=== PATIENT | female | born 1975 | race Caucasian/White ===

== ENCOUNTER 2023-08-17 07:47 | Outpatient (CLI) | payer OTHER ==
[2023-08-17 12:16] LABS: BASOPHILS % (AUTO) 0.8 %; EOSINOPHILS # (AUTO) 0.1 10^3/uL (0.0-0.7); EOSINOPHILS % (AUTO) 1.6 %; HCT - HEMATOCRIT 44.9 % (37.0-47.0); HGB - HEMOGLOBIN 14.2 g/dL (12.0-16.0); LYMPHOCYTES # (AUTO) 2.2 10^3/uL (1.5-3.5); LYMPHOCYTES % (AUTO) 42.7 %; MEAN CORPUSCULAR HGB CONC 31.6 g/dL (32.0-36.0); MEAN PLATELET VOLUME 9.6 fL (7.9-10.8); MONOCYTES # (AUTO) 0.5 10^3/uL (0.0-1.0); MONOCYTES % (AUTO) 9.7 %; NEUTROPHILS # (AUTO) 2.3 10^3/uL (1.5-6.6); PLT - PLATELET COUNT 405 10^3/uL (130-450); RED BLOOD COUNT 4.58 10^6/uL (4.20-5.40); RED CELL DISTRIBUTION WIDTH 13.5 % (12.0-15.0); WHITE BLOOD COUNT 5.1 x10^3/uL (4.8-10.8)
[2023-08-17 12:39] LABS: ALBUMIN 4.7 g/dL (3.2-5.5); ALBUMIN/GLOBULIN RATIO 1.8 (1.0-2.2); ALKALINE PHOSPHATASE 84 IU/L (42-121); ALT ALANINE AMINOTRANSFERASE 50 IU/L (10-60); AST ASPARTATE AMINOTRANSFERASE 31 IU/L (10-42); BILIRUBIN,TOTAL 0.6 mg/dL (0.2-1.0); BUN - BLOOD UREA NITROGEN 14 mg/dL (6-20); CALCIUM 10.2 mg/dL (8.5-10.3); CARBON DIOXIDE - CO2 29 mmol/L (21-32); CHLORIDE 106 mmol/L (101-111); CHOL/HDL RATIO 4.7 (<4.4); CHOLESTEROL 243 mg/dL; CREATININE 0.8 mg/dL (0.6-1.3); GFR - MDRD 76 (>89); GLUCOSE 130 mg/dL (74-104); HDL CHOLESTEROL 52 mg/dL; LDL CHOLESTEROL,CALCULATED 172 mg/dL; LDL/HDL RATIO 3.3 (<4.4); SODIUM 140 mmol/L (135-145); TOTAL PROTEIN 7.3 g/dL (6.4-8.9); TRIGLYCERIDES 95 mg/dL (48-352); VLDL CHOLESTEROL 19 mg/dL
[2023-08-17 12:55] LABS: THYROID STIMULATING HORMONE 1.23 uIU/mL (0.34-5.60)
[2023-08-17 13:00] LABS: ESTIMATED AVERAGE GLUCOSE 131 mg/dL (70-100); HEMOGLOBIN A1c% 6.2 % (4.27-6.07)
== END 2023-08-17 07:48 | disposition home or self-care (01) ==
LOC: LAB.N 07:47
PROVIDERS: ATTEND Physician Assistant
DX: R73.03 Prediabetes (principal); Z51.81 Encounter for therapeutic drug level monitoring; R63.5 Abnormal weight gain; Z79.899 Other long term (current) drug therapy
CPT/HCPCS: 36415; 80053; 80061; 83036; 83721; 84443; 85025

== ENCOUNTER 2023-10-12 07:23 | Day surgery (SDC) | payer OTHER ==
[2023-10-12] MEDS: LACTATED RINGERS 1,000 ML IV ONE (07:25)
[2023-10-12] MEDS ORDERED: PROPOFOL 500 MG/50 ML 500 MG/50 ML VIAL ONE (07:51)
[2023-10-12] MEDS ORDERED: MIDAZOLAM 2 MG/2 ML VIAL ONE (08:14)
[2023-10-12] MEDS ORDERED: PROPOFOL 200 MG/20 ML VIAL IVP ONE (08:50)
[2023-10-12] MEDS: LACTATED RINGERS 500 ML IV ONE (09:07)
[2023-10-12 09:34] VITALS: O2SAT 100
--- NOTE | 2023-10-12 09:54 | ANESTHESIA ---
Pre-Anesthesia VS, & Labs - Diagnosis cancer screening - Procedure colonoscopy Vital Signs: Temp Pulse Resp BP Pulse Ox O2 Flow Rate 36.2 C L 84 14 103/89 H 100 10/12/23 09:28 10/12/23 09:48 10/12/23 09:48 10/12/23 09:48 10/12/23 09:48 Height: 5 ft 7 in Weight (kg): 72.5 kg Body Mass Index: 25.0 BMI Classification: Overweight - NPO >8 hours - Is Patient ?: No - Lab Results Lab results reviewed: Yes Home Medications and Allergies Home Medications: Ambulatory Orders Buspirone HCl 10 mg PO BID 10/11/23 QUEtiapine [SEROquel] 25 mg PO QPM 10/11/23 Fluticasone/Vilanterol [Breo Ellipta 100-25 Mcg INH] 1 each IH DAILY 07/26/23 Montelukast [Singulair] 10 mg PO QPM 07/26/23 Spironolactone [Aldactone] 150 mg PO DAILY 07/26/23 valACYclovir [Valtrex] 1,000 mg PO DAILY 07/26/23 Buspirone HCl 10 mg PO BID 10/11/23 QUEtiapine [SEROquel] 25 mg PO QPM 10/11/23 Allergies/Adverse Reactions: Allergies Allergy/AdvReac Type Severity Reaction Status Date / Time No Known Drug Allergies Allergy Verified 07/26/23 12:07 Anes History & Medical History - Anesthetic History Anesthesia Complications: reports: No previous complications Family history of Anesthesia Complications: Denies Family history of Malignant Hyperthermia: Denies - Medical History Cardiovascular: reports: High cholesterol, Other Pulmonary: reports: Asthma Gastrointestinal: reports: GERD, Hemorrhoids, Other Urinary: reports: Kidney stones Endocrine/Autoimmune: reports: None Skin: reports: None Smoking Status: Never smoker - Surgical History Urologic: reports: Ureterolithotomy (stones) Gynecologic: reports: Breast implants Orthopedic: reports: ACL reconstruction, Spine surgery Exam General: Alert, Oriented x3, Cooperative Dental: WNL Mouth Openin Fingerbreadth Neck Mobility: Normal Mallampati classification: II Thyromental Distance: 4-6 cm Respiratory: Lungs clear, Normal breath sounds, No respiratory distress Cardiovascular: Regular rate, Other (states hx of PACs) Neurological: Normal speech Mental/Cognitive Status: Alert/Oriented X3, Normal for patient Cognitive Status: Within normal limits Plan Anesthesia Type: Total IV Consent for Procedure(s) Verified and Reviewed: Yes Code Status: Attempt Resuscitation ASA classification: 2-Mild systemic disease Is this case an emergency?: No
[2023-10-12 09:55] VITALS: BP 103/89
--- NOTE | 2023-10-12 13:10 | ANESTHESIA POST OP EVALUATION ---
Anesthesia Post Eval - Post Anesthesia Eval Vitals: Last Vital Signs Temp 36.2 C L 10/12/23 09:28 Pulse 84 10/12/23 09:48 Resp 14 10/12/23 09:48 BP 103/89 H 10/12/23 09:48 Pulse Ox 100 10/12/23 09:48 O2 Flow Rate CV Function Including HR & BP: Stable Pain Control: Satisfactory Nausea & Vomiting: Negative Mental Status: Baseline Respiratory Status: Airway Patent Hydration Status: Satisfactory Anesthesia Complications: None
== END 2023-10-12 07:24 | disposition home or self-care (01) ==
LOC: SDS 07:23
PROVIDERS: ATTEND Surgery
PROC: 0DBN8ZZ Excision of Sigmoid Colon, Via Natural or Artificial Opening Endoscopic (ICD-10-PCS; principal; 2023-10-12 08:30)
DX: Z12.11 Encounter for screening for malignant neoplasm of colon (principal); D12.5 Benign neoplasm of sigmoid colon; K57.30 Diverticulosis of large intestine without perforation or abscess without bleeding; K64.9 Unspecified hemorrhoids; J45.909 Unspecified asthma, uncomplicated
CPT/HCPCS: 45380; J7120